=== PATIENT | female | born 1965 | race Asian ===

== ENCOUNTER 2016-11-24 08:11 | Day surgery (SDC) | payer OTHER ==
[~2016-11-24] VITALS: Ht 162.6 cm; Wt 75.8 kg
[2016-11-24] MEDS ORDERED: SODIUM CHLORIDE 0.9% 1,000 ML IV SCH (09:01)
[2016-11-24 09:02] VITALS: BP 161/84
[2016-11-24] MEDS ORDERED: MIDAZOLAM 1 MG/ML, 5ML ONE (10:29)
[2016-11-24] MEDS ORDERED: NALOXONE 1 MG/ML, 2ML ONE (10:29)
[2016-11-24] MEDS ORDERED: FLUMAZENIL 0.1 MG/1 ML, 5ML ONE (10:29)
[2016-11-24] MEDS ORDERED: FENTANYL PF 100 MCG/2ML ONE (10:29)
== END 2016-11-24 12:00 | disposition home or self-care (01) ==
LOC: OUT 08:11 → EDSTATUS 09:00 → OUT 12:00
PROVIDERS: ATTEND Internal Medicine Nephrology
DX: I12.9 Hypertensive chronic kidney disease with stage 1 through stage 4 chronic kidney disease, or unspecified chronic kidney disease (principal); E11.22 Type 2 diabetes mellitus with diabetic chronic kidney disease; N18.4 Chronic kidney disease, stage 4 (severe); E78.5 Hyperlipidemia, unspecified; Z86.73 Personal history of transient ischemic attack (TIA), and cerebral infarction without residual deficits
CPT/HCPCS: 36415; 50200; 76770; 77012; 85610; 88300; 99156; 99157; J2250; J3010; J7030; J2310

== ENCOUNTER → 2017-10-26 | Outpatient (CLI) | payer OTHER, MEDICARE | END | disposition home or self-care (01) | LOC: CFH 12:04 | PROVIDERS: ATTEND Clinical Nurse Specialist Family Health | DX: M86.472 Chronic osteomyelitis with draining sinus, left ankle and foot (principal); E11.22 Type 2 diabetes mellitus with diabetic chronic kidney disease; N18.6 End stage renal disease; E11.621 Type 2 diabetes mellitus with foot ulcer; L97.526 Non-pressure chronic ulcer of other part of left foot with bone involvement without evidence of necrosis; L60.3 Nail dystrophy ==

== ENCOUNTER → 2020-11-26 | Outpatient (CLI) | payer OTHER, MEDICARE ==
[~2020-11-26] MED LIST: OMNIPAQUE 350 MG/ML, 100ML BOTTLE ONE
== END | disposition home or self-care (01) ==
LOC: CFH 13:55
PROVIDERS: ATTEND Obstetrics & Gynecology
DX: I65.01 Occlusion and stenosis of right vertebral artery (principal); R27.0 Ataxia, unspecified; I65.23 Occlusion and stenosis of bilateral carotid arteries
CPT/HCPCS: 70496; Q9967